=== PATIENT | female | born 1985 | race Caucasian/White ===

== ENCOUNTER 2019-09-26 11:28 | Emergency (ER) | payer OTHER ==
--- NOTE | 2019-09-26 12:58 | ED Physician Documentation ---
PD HPI OPHTHO - Stated complaint Stated Complaint: EYE SWOLLEN - Chief complaint Chief Complaint: Heent - History obtained from History obtained from: Patient, Family - History of Present Illness Timing - onset: Yesterday Timing - duration: Days (2) Timing - details: Gradual onset Pain level max: 3 Pain level now: 2 Location: Left Quality / character: Burning, Aching Associated symptoms: Redness, Swelling, Tearing, Discharge, Matting Contributing factors: Wears glasses. No: Exposed to conjunctivitis, Recent URI, FB, UV light (welding etc), Chemical exposure, acid, Chemical exposure, base, Blunt trauma, Penetrating trauma, Irrigated [employer], Wears contacts, Work related Similar symptoms before: Has not had sx before Recently seen: Not recently seen Review of Systems Constitutional: denies: Fever, Chills Eyes: denies: Loss of vision, Decreased vision Nose: denies: Rhinorrhea / runny nose, Congestion GI: denies: Abdominal Pain, Vomiting, Diarrhea Skin: denies: Rash Musculoskeletal: denies: Neck pain, Back pain Neurologic: denies: Headache PD PAST MEDICAL HISTORY - Past Medical History Past Medical History: No - Present Medications Home Medications: Ambulatory Orders Medication Instructions Recorded Confirmed Cholecalciferol (Vitamin D3) 2,000 unit PO 09/26/19 [Vitamin D3] Polymyxin B/Trimeth Ophth Drop 1 drops EACHEYE Q3H 7 Days #1 09/26/19 [Polytrim Ophth Drops] bottle - Allergies Allergies/Adverse Reactions: Allergies Allergy/AdvReac Type Severity Reaction Status Date / Time Sulfa (Sulfonamide Allergy Hives Verified 09/26/19 11:38 Antibiotics) - Living Situation Living Situation: reports: With family Living Arrangement: reports: At home - Social History Does the pt have substance abuse?: No PD ED PE NORMAL - Vitals Vital signs reviewed: Yes - General General: Alert and oriented X 3, No acute distress, Well developed/nourished - HEENT HEENT: PERRL, Moist mucous membranes, Other (L eye - mild upper eyelid swelling. Conjunctival injection with mild yellow drainage. No foreign body visible. Eyelids everted. Right eye is normal. No pain with extraocular movements) - Neck Neck: Supple, no meningeal sign - Cardiac Cardiac: RRR, No murmur - Respiratory Respiratory: Clear bilaterally - Abdomen Abdomen: Normal bowel sounds, Soft, Non tender, Non distended - Derm Derm: Warm and dry - Extremities Extremities: No deformity - Neuro Neuro: Alert and oriented X 3 - Psych Psych: Normal mood, Normal affect Results - Vitals Vitals: Vital Signs - 24 hr 09/26/19 09/26/19 11:36 13:10 Temperature 36.7 C Heart Rate 68 66 Respiratory 18 16 Rate Blood Pressure 91/67 100/70 O2 Saturation 98 98 Oxygen O2 Source Room air PD MEDICAL DECISION MAKING - ED course Complexity details: considered differential, d/w patient ED course: Patient appears to have bacterial conjunctivitis with a slight blepharitis. No evidence of orbital cellulitis or periorbital cellulitis. Will place on ophthalmic antibiotics and have her follow-up with her doctor for further care. Patient counseled regarding signs and symptoms for which I believe and urgent re-evaluation would be necessary. Patient with good understanding of and agr eement to plan and is comfortable going home at this time This document was made in part using voice recognition software. While efforts are made to proofread this document, sound alike and grammatical errors may occur. Departure - Departure Disposition: 01 Home, Self Care Clinical Impression: Bacterial conjunctivitis Condition: Good Instructions: ED Inflammation Eyelid, ED Conjunctivitis Bacterial Follow-Up: SARAH BEAULIEU [Primary Care Provider] - Within 1 week Prescriptions: Polymyxin B/Trimeth Ophth Drop [Polytrim Ophth Drops] 1 drops EACHEYE Q3H 7 Days #1 bottle Comments: Return if you worsen. Use the drops as prescribed. You can also apply warm compresses 2-3 times a day for 10 to 15 minutes at a time to help the eyelid drain. Discharge Date/Time: 09/26/19 13:10
[2019-09-26 13:12] VITALS: BP 100/70
== END 2019-09-26 13:10 | disposition home or self-care (01) ==
LOC: ED 11:28
DX: H10.022 Other mucopurulent conjunctivitis, left eye (principal)
CPT/HCPCS: 99282; 99284